=== PATIENT | male | born 1965 | race Caucasian/White ===

== ENCOUNTER 2018-09-29 12:46 | Emergency (ER) | payer OTHER ==
[~2018-09-29] VITALS: Ht 180.3 cm; Wt 99.8 kg
[2018-09-29] MEDS ORDERED: LIDOCAINE 1% Multi-Dose 20 ML VIAL. ID ONE (13:15)
[2018-09-29] MEDS ORDERED: fentaNYL PF VIAL 100 MCG/2 ML VIAL IV PRN (13:15)
[2018-09-29] MEDS ORDERED: HYDR-2761 PO (13:30)
--- NOTE | 2018-09-29 13:30 | PHYS DOC ---
Past Medical History Past Medical History: No Pertinent History Past Surgical History: Other Additional Past Surgical Histo: RIGHT EYE SURGERY Alcohol Use: Occasionally Drug Use: Marijuana Adult General Chief Complaint Chief Complaint: UPPER EXTREMITY INJURY HPI HPI 52-year-old gentleman presenting to the emergency department today with right shoulder pain after slipping on the ice. The pain in his shoulders a sharp shooting pain. This happened approximately 30 minutes ago. He denies any other injuries. He is not on anticoagulants. He denies any other medical conditions. The pain is sharp and shooting. It is not associated with numbness weakness or tingling. Medical history: None Surgical history: History of eye surgery Review of systems is negative for head injury loss of consciousness pain elbow pain or wrist pain. All other review of systems is negative unless otherwise noted in history of present illness. ED course: 52-year-old gentleman presenting today with right shoulder pain found to have a shoulder dislocation which was reversed used in the emergency department. See my procedure note. Repeat x-ray shows shoulder reduction. Patient is placed in a shoulder immobilizer and referred to orthopedic surgery. The patient was then discharged home in stable condition to follow up with Orthosurgery over the next 1-2 days. They were to return if their symptoms worsened or if they were concerned for any reason. They were also instructed to return to the emergency department if they were unable to get the recommended and appropriate follow-up. [id number] discharge instructions and return precautions were given. Patient's questions were answered to their satisfaction. Patient is comfortable with plan. Procedure note: Analgesia. 1% intra-articular lidocaine approximately 9 mL was used for analgesia along with 50 g of fentanyl. Procedure: Consent was obtained verbally from the patient. The patient was in severe pain and it was felt that getting written documentation was unnecessary because the patient more pain and suffering. After verbal permission was obtained from the patient in front of the nurse. I reduced the shoulder using downward pressure on the forearm external rotation and supination of the forearm. There are nurse also performed scapular manipulation during this period there was a clunk. Post x-rays show shoulder was reduced in satisfactory position. Patient was placed in a shoulder immobilizer afterwards. Neurovascular status prior to and after the event. The patient had normal motor and sensory function of the hand prior to and after the reduction. Palpable pulse distally. 2 second cap refill. Review of Systems Review of Systems SEE ABOVE. Current Medications Current Medications Current Medications Medications (Trade) Dose Ordered Sig/Carolyn Start Time Stop Time Status Last Admin Dose Admin Fentanyl Citrate (Fentanyl 2ml Vial) 50 mcg PRN Q30MIN PRN 09/29/18 13:15 09/29/18 13:09 50 MCG Lidocaine HCl (Lidocaine 1% 20ml Vial) 10 ml 1X ONCE 09/29/18 13:15 09/29/18 13:16 DC 09/29/18 13:14 10 ML Allergies Allergies Allergies Coded Allergies Type Severity Reaction Last Updated Verified No Known Drug Allergies 09/29/18 No Physical Exam Physical Exam SEE ABOVE Constitutional: Well developed, well nourished, no acute distress, non-toxic appearance. [] HENT: Normocephalic, atraumatic, bilateral external ears normal, oropharynx moist, no oral exudates, nose normal. [] Eyes: PERRLA, EOMI, conjunctiva normal, no discharge. [] Neck: Normal range of motion, no tenderness, supple, no stridor. [] Cardiovascular:Heart rate regular rhythm, no murmur [] Lungs & Thorax: Bilateral breath sounds clear to auscultation [] Abdomen: Bowel sounds normal, soft, no tenderness, no masses, no pulsatile masses. [] Extremities: The patient has swelling in the shoulder. Normal neurovascular status of the right upper extremity. After reduction: Normal neurovascular status. Nontender elbow and wrist distally. Skin: Warm, dry, no erythema, no rash. [] Back: No tenderness, no CVA tenderness. [] Extremities: No tenderness, no cyanosis, no clubbing, ROM intact, no edema. [] Neurologic: Alert and oriented X 3, normal motor function, normal sensory function, no focal deficits noted. [] Psychologic: Affect normal, judgement normal, mood normal. [] Current Patient Data Vital Signs Vital Signs Date Time Temp Pulse Resp B/P (MAP) Pulse Ox O2 Delivery O2 Flow Rate FiO2 09/29/18 13:09 12 98 Room Air 09/29/18 12:53 97.6 69 161/90 (113) 97.6 EKG EKG [] Radiology/Procedures Radiology/Procedures [] Course & Med Decision Making Course & Med Decision Making Pertinent Labs and Imaging studies reviewed. (See chart for details) [] Dragon Disclaimer Dragon Disclaimer This electronic medical record was generated, in whole or in part, using a voice recognition dictation system. Departure Departure Impression: Primary Impression: Shoulder dislocation Disposition: 01 HOME, SELF-CARE Condition: STABLE Referrals: ISABELLA LUNA II, MD Patient Instructions: Shoulder Dislocation Additional Instructions: Thank you for allowing us to participate in your care today. Return to the emergency department you have any new or worsening symptoms, or if you are concerned for any reason. Return to emergency department if you have any new or concerning symptoms including but not limited to fever, chills, nausea, vomiting, intractable pain, any new rashes, chest pain, shortness of air , uncontrolled bleeding, difficulty breathing, and/or vision loss. Follow up with your ortho surgery in 1-2 days. Call your Primary Doctor tomorrow and inform them of your visit today. If you do not have a primary care provider we are happy to provide you with a list of our primary care providers contact information. This condition should be evaluated by your primary care physician and any recommended consulting services for continued management within 2 days after discharge. If at any time, you are having difficulty getting into your primary care doctor or a specialist, return to the emergency department. Scripts Hydrocodone Bit/Acetaminophen (HYDROCODONE-APAP 5-325 ) 1 Tab Tablet 1 TAB PO PRN Q8HRS PRN for sev, #8 TAB 0 Refills Prov: SYLVESTER MEYER MD 09/29/18 SYLVESTER MEYER MD Sep 29, 2018 13:30
[2018-09-29] MEDS ORDERED: HYDROcodone/APAP 5/325MG 1 TAB TABLET PO ONE (13:45)
--- NOTE | 2018-09-29 13:47 | RAD ---
Indication: Right shoulder pain after fall. TECHNIQUE: Pre and post reduction right shoulder x-rays and multiple views of the humerus COMPARISON: None FINDINGS: The prereduction shoulder x-ray demonstrates anterior shoulder dislocation. There is flattening of the superolateral aspect of the humeral head which may represent a Hill-Sachs deformity. Right lung is clear. The post reduction images demonstrate appropriate alignment of the glenohumeral joint. Acromioclavicular joint is intact. The humerus except humeral head is within normal limits. IMPRESSION: 1. Flattening of the superolateral humeral head in setting of anterior shoulder dislocation concerning for Hill-Sachs deformity. Electronically signed by: Marco Mon DO (09/29/2018 1:44 PM) [id number]
[2018-09-29 14:00] VITALS: BP 185/87
== END 2018-09-29 14:10 | disposition home or self-care (01) ==
LOC: ER 12:46
DX: S43.084A Other dislocation of right shoulder joint, initial encounter (principal); W00.0XXA Fall on same level due to ice and snow, initial encounter; Y93.89 Activity, other specified; Y92.89 Other specified places as the place of occurrence of the external cause; Y99.8 Other external cause status
CPT/HCPCS: 23650; 73030; 73060; 96374; 99284; J3010